=== PATIENT | female | born 1980 | race Caucasian/White ===

== ENCOUNTER 2021-08-11 08:42 | Outpatient (CLI) | payer OTHER, SELFPAY ==
--- NOTE | 2021-08-11 08:45 | BI_ITS ---
MAMMOGRAPHY - BILATERAL DIAGNOSTIC REASON FOR EXAM: Female, 41 years old. Right lateral breast pain. PERTINENT HISTORY: Grandmother with breast cancer. Aunt with breast cancer. TECHNIQUE: Digital bilateral breast lacie (3D mammographic acquisition) in the CC and MLO projections. 2-D mediolateral oblique (MLO) and craniocaudad (CC) views of both breasts were obtained. CAD: Full Field Digital Mammography with Computer Added Detection was performed. COMPARISON: None. Baseline examination. FINDINGS: Breast Composition: The breasts are extremely dense, which lowers the sensitivity of mammography. There are no dominant masses or suspicious calcifications. No other significant abnormalities are identified. BI/DIAG MAMM W/CAD, BILAT IMPRESSION: Negative diagnostic mammogram. With the patient''s history of bilateral breast pain, correlation with ultrasound is recommended. ASSESSMENT CATEGORY: BIRADS Category 0: Incomplete. Need additional imaging evaluation. A letter regarding these results will be sent to the patient by the facility within 30 days. Approximately 10% of breast cancers are not detected by mammography. A normal mammogram should not delay biopsy of a clinically suspicious abnormality. Electronically Signed: Pepito Asencio MD at 10:55 EDT ,
--- NOTE | 2021-08-11 08:45 | US_ITS ---
STUDY: ULTRASOUND BREAST - RIGHT REASON FOR EXAM: Female, 41 years old. Pain in the left breast. TECHNIQUE: Axial and longitudinal images of the RIGHT breast were performed with a high resolution ultrasound transducer. # OF IMAGES: 34 COMPARISON: Comparison is made with prior mammogram done earlier today. FINDINGS: RIGHT Breast: The lateral half of the right breast was examined by ultrasound. There is an 8 mm x 7 mm x 4 mm hypoechoic nodule at the 8 o''clock position the breast at 3 cm from nipple. The nodule is well-defined. There is a fatty hilum. This is suggestive of a small lymph node. A four-month follow-up ultrasound is recommended. US/Breast Limited Unilateral IMPRESSION: 8 mm x 7 mm x 4 mm hypoechoic well-defined nodule with a central echogenic hilum suggestive of a small lymph node at the 8 o''clock position of the breast at 3 cm from nipple. A four-month follow-up ultrasound is recommended. ASSESSMENT CATEGORY: BIRADS Category 3: Probably Benign - Short-Interval Follow-up Suggested. A letter regarding these results will be sent to the patient by the facility within 30 days. Electronically Signed: Pepito Asencio MD at 11:19 EDT ,
== END 2021-08-11 23:59 | disposition home or self-care (01) ==
LOC: OPBI 08:44
PROVIDERS: Referring Provider Obstetrics & Gynecology; Visit Provider Obstetrics & Gynecology
DX: N64.4 Mastodynia (principal)
CPT/HCPCS: 76642; 77062; 77066; G0279

== ENCOUNTER 2021-12-11 08:59 | Outpatient (CLI) | payer OTHER, SELFPAY ==
--- NOTE | 2021-12-11 09:01 | US_ITS ---
STUDY: ULTRASOUND BREAST - RIGHT REASON FOR EXAM: Female, 41 years old. Pain in the right breast. TECHNIQUE: Axial and longitudinal images of the RIGHT breast were performed with a high resolution ultrasound transducer. # OF IMAGES: 23 COMPARISON: Comparison is made with prior mammogram dated 12/11/2021 and prior sonogram of the right breast dated 08/11/2021 FINDINGS: RIGHT Breast: There is an 8 mm x 6 mm x 3 mm benign appearing lymph node at the 8 o''clock position of the breast at 3 cm from the nipple. This is unchanged. US/Breast Limited Unilateral IMPRESSION: Stable benign-appearing lymph node at the 8 o''clock position of the breast at 3 cm from nipple. ASSESSMENT CATEGORY: BIRADS Category 2: Benign. A letter regarding these results will be sent to the patient by the facility within 30 days. Electronically Signed: Pepito Asencio MD at 11:01 EDT ,
--- NOTE | 2021-12-11 09:01 | BI_ITS ---
MAMMOGRAPHY - UNILATERAL DIAGNOSTIC: RIGHT BREAST REASON FOR EXAM: Female, 41 years old. Lateral right breast pain. PERTINENT HISTORY: Grandmother with breast cancer. Aunt with breast cancer. TECHNIQUE: Digital unilateral breast lacie (3D mammographic acquisition) in the CC and MLO projections. 2-D mediolateral oblique (MLO) and craniocaudad (CC) views of both breasts were obtained. CAD: Full Field Digital Mammography with Computer Added Detection was performed. COMPARISON: Comparison is made with prior study dated 08/11/2021. FINDINGS: Breast Composition: The breasts are heterogeneously dense, which may obscure small masses. There are no dominant masses or suspicious calcifications. No other significant abnormalities are identified. There has been no significant change since the prior study. BI/DIAG MAMM W/CAD, UNILAT IMPRESSION: Stable unilateral diagnostic mammogram. With the patient''s history of right lateral breast pain, correlation with ultrasound is recommended. ASSESSMENT CATEGORY: BIRADS Category 0: Incomplete. Need additional imaging evaluation. A letter regarding these results will be sent to the patient by the facility within 30 days. Approximately 10% of breast cancers are not detected by mammography. A normal mammogram should not delay biopsy of a clinically suspicious abnormality. Electronically Signed: Pepito Asencio MD at 10:25 EDT ,
== END 2021-12-11 23:59 | disposition home or self-care (01) ==
LOC: OPBI 09:00
PROVIDERS: Visit Provider Obstetrics & Gynecology
DX: N64.4 Mastodynia (principal)
CPT/HCPCS: 76642; 77061; 77065; G0279

== ENCOUNTER → 2022-08-17 | Outpatient (CLI) | payer OTHER, SELFPAY ==
--- NOTE | 2022-08-17 09:16 | US_ITS ---
STUDY: ULTRASOUND BREAST - RIGHT REASON FOR EXAM: Female, 42 years old. Pain in the right breast. TECHNIQUE: Axial and longitudinal images of the RIGHT breast were performed with a high resolution ultrasound transducer. # OF IMAGES: 19 COMPARISON: Comparison is made with prior mammogram done earlier in the day as well as prior sonogram dated December 11, 2021. FINDINGS: RIGHT Breast: Stable 9 mm x 10 mm x 4 mm well-defined hypoechoic solid nodule at the 7:00 position of the breast at 3 cm from the nipple. US/Breast Limited Unilateral IMPRESSION: Stable 9 mm x 10 mm x 4 mm benign-appearing lymph node at the 8:00 position in the breast at 3 cm from nipple. ASSESSMENT CATEGORY: BIRADS Category 2: Benign. A letter regarding these results will be sent to the patient by the facility within 30 days. Electronically Signed: Pepito Asencio MD at 14:33 EDT ,
--- NOTE | 2022-08-17 09:16 | BI_ITS ---
MAMMOGRAPHY - BILATERAL DIAGNOSTIC REASON FOR EXAM: Female, 42 years old. Right axillary lymph note. PERTINENT HISTORY: Grandmother with breast cancer. Aunt with breast cancer. TECHNIQUE: Digital bilateral breast lacie (3D mammographic acquisition) in the CC and MLO projections. 2-D mediolateral oblique (MLO) and craniocaudad (CC) views of both breasts were obtained. CAD: Full Field Digital Mammography with Computer Added Detection was performed. COMPARISON: Comparison is made with prior study of August 11, 2021 and December 11, 2021. FINDINGS: Breast Composition: The breasts are heterogeneously dense, which may obscure small masses. There are no dominant masses or suspicious calcifications. Stable appearance of the right axillary lymph node. No other significant abnormalities are identified. There has been no significant change since the prior study. BI/DIAG MAMM W/CAD, BILAT IMPRESSION: Stable bilateral diagnostic mammogram. Ultrasound evaluation of the right axillary lymph nodes recommended. ASSESSMENT CATEGORY: BIRADS Category 0: Incomplete. Need additional imaging evaluation. A letter regarding these results will be sent to the patient by the facility within 30 days. Approximately 10% of breast cancers are not detected by mammography. A normal mammogram should not delay biopsy of a clinically suspicious abnormality. Electronically Signed: Pepito Asencio MD at 11:12 EDT ,
== END | disposition home or self-care (01) ==
LOC: OPBI 09:14
PROVIDERS: Referring Provider Obstetrics & Gynecology; Visit Provider Obstetrics & Gynecology
DX: R92.8 Other abnormal and inconclusive findings on diagnostic imaging of breast (principal)
CPT/HCPCS: 76642; 77062; 77066; G0279

== ENCOUNTER → 2023-08-22 | Outpatient (CLI) | payer OTHER, SELFPAY ==
[2023-08-26 17:07] LABS: HPV APTIMA, High Risk Negative (Negative)
== END | disposition home or self-care (01) ==
LOC: LABSPEC 14:42
PROVIDERS: Referring Provider Obstetrics & Gynecology; Visit Provider Obstetrics & Gynecology
DX: Z12.4 Encounter for screening for malignant neoplasm of cervix (principal)
CPT/HCPCS: 87624; 88175; G0145

== ENCOUNTER → 2023-08-30 | Outpatient (CLI) | payer OTHER, SELFPAY ==
--- NOTE | 2023-08-30 08:58 | BI_ITS ---
MAMMOGRAPHY - BILATERAL DIAGNOSTIC REASON FOR EXAM: Female, 43 years old. Pain in the region of the 9:00 radiant of the right breast. PERTINENT HISTORY: Grandmother with breast cancer. Aunt with breast cancer. TECHNIQUE: Digital bilateral breast lacie (3D mammographic acquisition) in the CC and MLO projections. 2-D mediolateral oblique (MLO) and craniocaudad (CC) views of both breasts were obtained. CAD: Full Field Digital Mammography with Computer Added Detection was performed. COMPARISON: Comparison is made with prior study August 17, 2022 and August 11, 2021. FINDINGS: Breast Composition: The breasts are heterogeneously dense, which may obscure small masses. There are no dominant masses or suspicious calcifications. Stable bilateral axillary lymph nodes. No other significant abnormalities are identified. There has been no significant change since the prior study. BI/DIAG MAMM W/CAD, BILAT IMPRESSION: Stable bilateral diagnostic mammogram. With the patient''s history of right breast pain, targeted correlation with ultrasound recommended. ASSESSMENT CATEGORY: BIRADS Category 0: Incomplete. Need additional imaging evaluation. A letter regarding these results will be sent to the patient by the facility within 30 days. Approximately 10% of breast cancers are not detected by mammography. A normal mammogram should not delay biopsy of a clinically suspicious abnormality. Electronically Signed: Pepito Asencio MD at 10:32 EDT ,
--- NOTE | 2023-08-30 08:58 | US_ITS ---
STUDY: ULTRASOUND BREAST - RIGHT REASON FOR EXAM: Female, 43 years old. History of right breast pain. No axillary lymph nodes. TECHNIQUE: Axial and longitudinal images of the RIGHT breast were performed with a high resolution ultrasound transducer. # OF IMAGES: 14 COMPARISON: Comparison is made with prior ultrasound of the right breast dated August 17, 2022. FINDINGS: RIGHT Breast: The lateral aspect of the right breast was examined with ultrasound. There is a stable 1.1 cm x 0.4 cm x 0.8 cm hypoechoic well-defined nodule at the 7:00 position of the breast at 4 cm from the nipple. This is in keeping with a lymph node. This is unchanged. US/Breast Limited Unilateral IMPRESSION: Stable examination. ASSESSMENT CATEGORY: BIRADS Category 2: Benign. A letter regarding these results will be sent to the patient by the facility within 30 days. Electronically Signed: Pepito Asencio MD at 13:14 EDT ,
[2023-08-30 10:40] LABS: Vitamin D,25 Hydroxy 17.8 ng/mL
[2023-08-30 10:45] LABS: Cholesterol 206 mg/dL (200); Glucose 94 mg/dL (74-106); High Density Lipoprotein 71 mg/dL; T4 Free Direct 0.97 ng/dL (0.76-1.46); Thyroid Stim Hormone (TSH) 1.83 uIU/mL (0.358-3.74); Triglycerides 59 mg/dL; Very Low Density Lipoprotein 12 mg/dL (5-40)
[2023-08-31 04:07] LABS: Thyroid Peroxidase AB < 9 IU/mL (0-34)
== END | disposition home or self-care (01) ==
PROVIDERS: Referring Provider Obstetrics & Gynecology; Visit Provider Obstetrics & Gynecology
DX: N64.4 Mastodynia (principal); Z87.898 Personal history of other specified conditions; Z83.49 Family history of other endocrine, nutritional and metabolic diseases; L65.9 Nonscarring hair loss, unspecified; R63.5 Abnormal weight gain; Z13.21 Encounter for screening for nutritional disorder; Z13.1 Encounter for screening for diabetes mellitus; N63.13 Unspecified lump in the right breast, lower outer quadrant
CPT/HCPCS: 36415; 76642; 77062; 77066; 80061; 82306; 82947; 84439; 84443; 86376; G0279

== ENCOUNTER → 2023-09-30 | Outpatient (CLI) | payer OTHER, SELFPAY ==
--- NOTE | 2023-09-30 07:59 | US_ITS ---
STUDY: ULTRASOUND OF THE FEMALE PELVIS - COMPLETE REASON FOR EXAM: Female, 43 years old. Abnormal uterine bleeding LMP: September 15, 2023. TECHNIQUE: Transabdominal and Transvaginal TECHNICAL QUALITY: Adequate. COMPARISON: None. FINDINGS: The uterus is anteverted and is in a midline position. The uterus measures 8.9 cm x 7.2 cm x 4.9 cm. There is a Nabothian cyst of the cervix. The endometrium measures 11 mm in thickness, and is hyperechoic. There is no demonstrated endometrial mass. I suspect 2 small uterine fibroids. The larger measures 1.5 cm x 1.3 cm x 1 cm. I.U.D. - The patient does not have an I.U.D. The right ovary is visualized. The right ovary measures 1.8 cm x 1.8 cm x 2.1 cm. There is no right ovarian cyst or ovarian mass. There is no visualized right adnexal mass or complex lesion. There is normal arterial and normal venous vascularity. The left ovary is visualized. The left ovary measures 2.5 cm x 2.4 cm x 2 cm. There is no left ovarian cyst or ovarian mass. There is no visualized left adnexal mass or complex lesion. There is normal arterial and normal venous vascularity. There is no fluid in the cul-de-sac. The pre void volume of the bladder was 339 ml. US/Pelvic w/ Transvaginal IMPRESSION: Findings suggestive of 2 small uterine fibroids. Electronically Signed: Pepito Asencio MD at 15:01 EDT ,
== END | disposition home or self-care (01) ==
LOC: US 07:58
PROVIDERS: Referring Provider Obstetrics & Gynecology; Visit Provider Obstetrics & Gynecology
DX: N93.9 Abnormal uterine and vaginal bleeding, unspecified (principal)
CPT/HCPCS: 76830; 76856

== ENCOUNTER → 2023-10-04 | Outpatient (CLI) | payer OTHER, SELFPAY ==
--- NOTE | 2023-10-04 08:17 | EMB_PTH ---
PATIENT: ALBARO HIRSCH LOC: [facility] U#:[id number] AGE/SX: 43/F ROOM: RE10/04/[address]: Dr. Ana Grant DO : 1980 BED: DIS: 10/04/2023 SPEC #: [id number] RECD: 10/04/23 12:02 STATUS: WALDO JYOTI #: [id number] LUCINDA: 10/04/23 08:[address]: Ana Grant DEPT: SURGICAL PATHOLOGY RECD BY: Leann Arguello ENTERED: 10/04/23 13:19 SP TYPE: ENDOM BX/C JAYDON DR: No Primary Care Phys Tissues: Endometrium, NOS Procedures: Surgery Specimen Level IV HEADER OPERATION: Endometrial biopsy PRE-OP DIAGNOSIS: Abnormal uterine bleeding TISSUE SUBMITTED: Endometrial lining MICROSCOPIC DIAGNOSIS Endometrium, biopsy: Mildly disordered, weakly proliferative endometrium with focal glandular breakdown. AM/mr 10/05/2023 MICROSCOPIC DESCRIPTION Slides are reviewed. GROSS DESCRIPTION Received is one container labeled with the patient's name and not further designated. The specimen consists of multiple irregular fragments of light to dark grvoe soft tissue measuring in aggregate 2.0 x 1.3 x <0.1cm. The specimen is totally submitted in one cassette. AM/mr 10/04/2023 TC:5 CPT:91854
== END | disposition home or self-care (01) ==
LOC: LABSPEC 10:39
PROVIDERS: Referring Provider Obstetrics & Gynecology; Visit Provider Obstetrics & Gynecology
DX: N93.9 Abnormal uterine and vaginal bleeding, unspecified (principal)
CPT/HCPCS: 88305

== ENCOUNTER → 2024-10-05 | Outpatient (CLI) | payer OTHER, SELFPAY ==
--- NOTE | 2024-10-05 08:57 | BI_ITS ---
EXAM: DIAG MAMM W/CAD, BILAT; BREAST LIMITED UNILATERAL; BILAT BRST RAHEL STAND ALONE 10/05/2024 CLINICAL HISTORY: F, Age 44 y/o , BREAST PAIN (RIGHT); BREAST PAIN RIGHT); MASTODYNIA TECHNIQUE: Bilateral Diagnostic digital breast tomosynthesis with 2D and 3D images. Computer aided detection. Also, targeted right breast ultrasound was performed. COMPARISON: Prior exam(s) dated mammogram and ultrasound 08/30/2023, 08/17/2022, 12/11/2021 and 08/11/2021. FINDINGS: MAMMOGRAM: TISSUE DENSITY: The breast tissue is heterogenously dense, which may obscure small masses. The mammogram demonstrates that the patient has dense breasts. Supplemental screening with whole breast ultrasound or MRI may be considered for further evaluation. Right breast: There is a triangle skin marker indicating the area of focal pain in the lateral right breast. The dense breast tissue in this area obscures any underlying mass. Left breast: There are no suspicious masses, grouped calcifications or architectural distortions in the left breast. ULTRASOUND: Ultrasound performed of the area of patient's reported pain in the right breast at 7 o'clock 4 cm from nipple there is a architecturally normal-appearing intramammary lymph node measuring 0.7 x 0.3 x 0.8 cm with cortical thickness of 0.1 cm. This is stable and has not changed when compared to multiple priors dating back to 2021. Otherwise, there are no suspicious sonographic findings. BI/DIAG MAMM W/CAD, BILAT IMPRESSION: 1. The patient's area of tenderness in the right breast correlates to a benign intramammary lymph node. 2. There is no evidence of malignancy in either breast. OVERALL FINAL ASSESSMENT: BIRADS 2 BENIGN FINDING. RECOMMENDATION: Routine annual follow-up in 1 Year A letter with findings and recommendations will be mailed to the patient. Reading Location: [id number]
--- NOTE | 2024-10-05 09:00 | BI_ITS ---
EXAM: DIAG MAMM W/CAD, BILAT; BREAST LIMITED UNILATERAL; BILAT BRST RAHEL STAND ALONE 10/05/2024 CLINICAL HISTORY: F, Age 44 y/o , BREAST PAIN (RIGHT); BREAST PAIN RIGHT); MASTODYNIA TECHNIQUE: Bilateral Diagnostic digital breast tomosynthesis with 2D and 3D images. Computer aided detection. Also, targeted right breast ultrasound was performed. COMPARISON: Prior exam(s) dated mammogram and ultrasound 08/30/2023, 08/17/2022, 12/11/2021 and 08/11/2021. FINDINGS: MAMMOGRAM: TISSUE DENSITY: The breast tissue is heterogenously dense, which may obscure small masses. The mammogram demonstrates that the patient has dense breasts. Supplemental screening with whole breast ultrasound or MRI may be considered for further evaluation. Right breast: There is a triangle skin marker indicating the area of focal pain in the lateral right breast. The dense breast tissue in this area obscures any underlying mass. Left breast: There are no suspicious masses, grouped calcifications or architectural distortions in the left breast. ULTRASOUND: Ultrasound performed of the area of patient's reported pain in the right breast at 7 o'clock 4 cm from nipple there is a architecturally normal-appearing intramammary lymph node measuring 0.7 x 0.3 x 0.8 cm with cortical thickness of 0.1 cm. This is stable and has not changed when compared to multiple priors dating back to 2021. Otherwise, there are no suspicious sonographic findings. BI/Bilat Brst Rahel Stand Alone IMPRESSION: 1. The patient's area of tenderness in the right breast correlates to a benign intramammary lymph node. 2. There is no evidence of malignancy in either breast. OVERALL FINAL ASSESSMENT: BIRADS 2 BENIGN FINDING. RECOMMENDATION: Routine annual follow-up in 1 Year A letter with findings and recommendations will be mailed to the patient. Reading Location: [id number]
== END | disposition home or self-care (01) ==
LOC: OPBI 08:56
PROVIDERS: PCP Family Medicine; Referring Provider Obstetrics & Gynecology; Visit Provider Obstetrics & Gynecology
DX: N64.4 Mastodynia (principal)
CPT/HCPCS: 76642; 77062; 77066; G0279